=== PATIENT | female | born 1985 | race Hispanic/Latino ===

== ENCOUNTER 2018-02-11 16:54 | Outpatient (RCR) | payer OTHER, SELFPAY ==
--- NOTE | 2018-02-24 13:54 | HP.PTEVAL_ITS ---
Patient's Visit Information KYLAH LUCIO is a 32 year old F referred to Physical Therapy by Evelina Parker DO with a diagnosis of B patellofemoral chondromalacia. Date of Evaluation: 02/11/18 Physical Therapist: Orestes Watt - Visit Plan Frequency: 1x/Week Duration: 4-6 Weeks Plan: Start with quad, glute med, glute max, hip ER and core strengthening. Progress with HS stretching, quad stretching, TFL stretching. Pt. given above exercises for HEP. Pt. to trial independently at pt. request. - Subjective Subjective: Pt. is here today for her initial evaluation with diagnosis of B patellofemoral chondromalacia. Pt. reports having increased pain over the past few months, but became a lot worse over the last 4-6 weeks. Pt. reports increased pain with squating, running, lunging, stairs and HIT type classes at gym. Pt. reports no pain with walking usually, but is sore after doing any of the above exercises/activities. She denies N/T. Has trialed ice and OTC meds without issues. Pt. has been continuing to go to HIT classes I just suffer through it. Pt. reports minimal stretching. Pt. is hopeful to reduce symptoms allowing for return to gym classes without issues. - Pain R knee Pain Intensity (Out of 10): 1 Pain Intensity Range: 0, 4 L knee Pain Intensity (Out of 10): 1 Pain Intensity Range: 0, 4 - Objective POSTURE: Pt. has normal iliac crest height. Pt. has slight bilateral femoral IR and knee valgus positioning bilaterally. PALPATION: Pt. has increased tenderness along bilateral patellar tendons and medial joint lines. No posterior pain bilaterally. Pt. has no hip pain. NEUROLOGICAL: Pt. has normal sensation to light and sharp touch of bilateral LEs. Pt. has 2+ bilateral patellar and achilles DTR bilaterally. Pt. is able to rise on heels and toes without issues. ROM: Pt. has normal knee ROM, mild increase NW with bilateral knee flexion with over pressure. Pt. has normal hip ROM with HS tightness and hip flexor tightness bilaterally. Pt. has normal hip ER/IR. Tightness noted in B IT bands as well. MMT: RLE- ankle 5/5 throughout; knee ext- 5-/5, flexion 5-/ 5; hip- flexion 4+/5, abd 4/5, ext 4+/5, ER 4/5. LLE- ankle 5/5 throughout; knee- ext 5-/5, flexion 5-/5; hip- flexion 4+/5, abd 4+/5, ext 4+/5, ER 4/5. Core strength- fair-. GAIT: Pt. ambulates without AD. Pt. has slight increase in bilateral knee valgus positioning. Pt. has normal step length bilaterally. STAIRS: Pt. is able to negotiate with reciprocal pattern without HR, bilateral increase in symptoms with descending. SQUAT: Pt. has decent pattern, increased knee valgus positioning. Pt. has slight fwrd translation of knees. Increased pain noted with ~90deg of knee flexion. - Special Tests R Knee Ritesh - Meniscus: Negative R Knee Cristiane - ACL: Negative R Knee Posterior Drawer - PCL: Negative R Knee Valgus - MCL: Negative R Knee Varus - LCL: Negative R Knee Patellar Apprehension - PFS: Negative R Knee Patellar Grind - PFS: Positive R Knee Medial Patellar Plica - Plica Syndrome: Negative L Knee Ritesh - Meniscus: Negative L Knee Disco Test - Meniscus: Negative L Knee Cristiane - ACL: Negative L Knee Pivot Shift - ACL, Ant. Rotator Instability: Negative L Knee Posterior Drawer - PCL: Negative L Knee Valgus - MCL: Negative L Knee Varus - LCL: Negative L Knee Patellar Apprehension - PFS: Negative L Knee Patellar Grind - PFS: Positive - Goals Goal 1:: Pt. to be I with HEP. Goal Time Frame: 4-6 Weeks Goal 2:: Pt. to have proper squating motions without increase in symptoms. Goal Time Frame: 4-6 Weeks Goal 3:: Pt. to have increased BLE strength by 1/2 grade of all effected musculature improving stability and decreasing stress at knee joint with all functional/recreation activities. Goal Time Frame: 4-6 Weeks Goal 4:: Pt. have 0-2/10 pain in B knees with all gym classes. Goal Time Frame: 4-6 Weeks Goal 5:: Pt. to have 0-1/10 pain with stair negotiation. - Rehabilitation Potential Physical Therapy Diagnosis: Pt. has signs and symptoms consistent with B patellofemoral chondromalacia. Pt. has subsequent quad, glute med, glute max and hip ER. Pt. would benefit from PT. to increase BLE strengthening, IT band stretching, HS stretching to increase stability allowing for increased tolerance to all gym classes. Rehabilitation Potential: Good - Anticipated Interventions Patient/Client Instruction: Educate patient on: Condition, Plan of Care, Risk Factors, Benefits of Fitness Program For the Purpose of:: To improve safety, To improve health and function, To foster healthy habits, To improve decision making, To facilitate caregiver knowledge, To improve self management, To prevent re-injury, To improve ability to perform tasks related to life management, To improve tolerance to ADL's Therapeutic Exercise to Include: Strength training, Power training, Postural training, Flexibilty training, Dynamic Lumbar Stabilization For the Purpose of:: To decrease pain, To improve nutrient delivery to tissue, To increase oxygenation perfusion, To improve muscle performance and motor function, To decrease soft tissue restriction, To increase flexibility/ROM Thank you for the opportunity to evaluate your patient. For Medicare and Medicare HMO plans, please review the plan of care and approve it. It will need to be FAXED BACK to us at [phone] for Medicare purposes. Please let me know if there are questions or concerns regarding this plan of care. Physician Signature: Date:
--- NOTE | 2018-07-31 08:24 | HP.PT.NRP ---
HP - Discharge Summary (1) - Patient Information KYLAH LUCIO was seen in my office for initial evaluation on 02/11/18. The following Plan of Care was established for this patient: Initial Frequency: 1x/Week Initial Duration: 4-6 Weeks - Anticipated Interventions Patient/Client Instruction: Educate patient on: Condition, Plan of Care, Risk Factors, Benefits of Fitness Program For the Purpose of:: To improve safety, To improve health and function, To foster healthy habits, To improve decision making, To facilitate caregiver knowledge, To improve self management, To prevent re-injury, To improve ability to perform tasks related to life management, To improve tolerance to ADL's Therapeutic Exercise to Include: Strength training, Power training, Postural training, Flexibilty training, Dynamic Lumbar Stabilization For the Purpose of:: To decrease pain, To improve nutrient delivery to tissue, To increase oxygenation perfusion, To improve muscle performance and motor function, To decrease soft tissue restriction, To increase flexibility/ROM This patient was last seen in our office 02/11/18. Pertinent comments regarding their Physical therapy will appear below: Pt. was seen for her patellofemoral syndrome. Pt. was seen for her evaluation and was given exercises to complete on her own. Pt. has not been seen in Pt since. Pt. will be DC from PT at this point in time. At this point I will be discontinuing this patient from physical therapy. I would be happy to see this patient again in the future if found appropriate by the physician. Thank you! Orestes Watt
== END 2018-02-11 19:00 | disposition home or self-care (01) ==
LOC: PT 16:54
PROVIDERS: Family Provider Family Medicine; PCP Family Medicine; Visit Provider Orthopaedic Surgery
DX: M22.41 Chondromalacia patellae, right knee (principal); M22.42 Chondromalacia patellae, left knee
CPT/HCPCS: 97110; 97162